=== PATIENT | male | born 1965 | race Caucasian/White ===

== ENCOUNTER 2017-03-19 22:10 | Emergency (ER) | payer MEDICAID ==
[~2017-03-19] VITALS: Ht 177.8 cm; Wt 95.3 kg
[2017-03-19 22:30] VITALS: BP_SYST 164
[2017-03-19] MEDS: KETOROLAC TROMETHAMINE 30 MG VIAL IVP ONE (23:21)
[2017-03-19] MEDS: MORPHINE SULFATE 10 MG/ML VIAL IVP ONE (23:23)
[2017-03-19] MEDS: NACL 0.9% 1,000 ML IV ONE ×2 (23:24→23:25)
[2017-03-19 23:33] LABS: BILIRUBIN,URINE NEGATIVE (NEGATIVE); BLOOD, URINE 1+ (NEGATIVE); CLARITY/URINE CLEAR (CLEAR); COLOR,URINE YELLOW (YELLOW); GLUCOSE,URINE NEGATIVE (NEGATIVE); KETONES,URINE TRACE (NEGATIVE); LEUKOCYTE ESTERASE ,URINE NEGATIVE (NEGATIVE); NITRITE, URINE NEGATIVE (NEGATIVE); PH,URINE 5.5 (5.0-8.0); PROTEIN URINE 2+ (NEGATIVE); UROBILINOGEN,URINE 0.2 (0.2-1.0)
[2017-03-19 23:34] LABS: BASOPHILS % (AUTO) 0.4 % (0.0-2.0); EOSINOPHILS # (AUTO) 0.2 K/uL (0.0-0.4); EOSINOPHILS % (AUTO) 2.4 % (0.0-4.0); HEMATOCRIT 39.6 % (36-54); HEMOGLOBIN 13.8 g/dL (14.0-18.0); LYMPHOCYTES # (AUTO) 2.7 K/uL (1.0-5.5); LYMPHOCYTES % (AUTO) 40.7 % (20.5-51.5); MEAN CORPUSCULAR HEMOGLOBIN 29 pg (27-31); MEAN CORPUSCULAR HGB CONC 35 % (32-36); MEAN CORPUSCULAR VOLUME 85 fL (79.0-98.0); MONOCYTES # (AUTO) 0.9 K/uL (0.0-1.0); MONOCYTES % (AUTO) 13.1 % (1.7-9.3); NEUTROPHILS # (AUTO) 2.8 K/uL (1.8-7.7); NEUTROPHILS % (AUTO) 43.4 % (40.0-70.0); PLATELET COUNT (AUTO) 185 K/uL (130-430); RED BLOOD CELL COUNT(AUTO) 4.69 MIL/uL (4.2-6.2); WHITE BLOOD COUNT (AUTO) 6.6 K/uL (4.8-10.8)
[2017-03-19 23:36] LABS: CALCIUM 8.7 mg/dL (8.4-11.0); CREATININE 1.58 mg/dL (0.55-1.30)
[2017-03-19 23:38] LABS: TOTAL BILIRUBIN 1.1 mg/dL (0.0-1.0)
[2017-03-19 23:38] LABS: BACTERIA,URINE FEW /HPF (None Seen); HYALINE CASTS, URINE 0-3 /LPF (None Seen); WBC,URINE 0-3 /HPF (0-3)
[2017-03-19 23:39] LABS: ALBUMIN 3.4 g/dL (3.4-4.8)
[2017-03-19 23:39] LABS: MUCUS,URINE 1+ /LPF (None Seen)
[2017-03-19 23:40] LABS: PROTHROMBIN TIME 10.5 SECS (9.5-12.5)
[2017-03-20] MEDS: metroNIDAZOLE 500 mg/NS 100 ML IV ONE (00:17)
[2017-03-20] MEDS: LEVOFLOXACIN 500 MG/D5W 100 ML IV ONE (00:17)
[2017-03-20] MEDS: MORPHINE SULFATE 10 MG/ML VIAL IVP ONE (00:21)
[2017-03-20 01:23] VITALS: BP_SYST 138
== END 2017-03-20 01:23 | disposition home or self-care (01) ==
LOC: SED 22:10
DX: K65.4 Sclerosing mesenteritis (principal); E11.9 Type 2 diabetes mellitus without complications
CPT/HCPCS: 36415; 74176; 80053; 81000; 83690; 85025; 85610; 85730; 96361; 96365; 96367; 96375; 96376; 99285; J1885; J1956; J2270 ×2; J3490; J7030

== ENCOUNTER 2017-04-15 16:50 | Emergency (ER) | payer MEDICAID ==
[~2017-04-15] VITALS: Ht 177.8 cm; Wt 95.3 kg
[2017-04-15 16:50] VITALS: BP_SYST 197
[2017-04-15] MEDS ORDERED: NACL 0.9% 1,000 ML IV ONE (17:15)
[2017-04-15] MEDS ORDERED: KETOROLAC TROMETHAMINE 30 MG VIAL IVP ONE (17:15)
[2017-04-15] MEDS ORDERED: cloNIDine HCL 0.1 MG TABLET PO ONE ×2 (17:30→18:45)
[2017-04-15 17:33] LABS: BASOPHILS % (AUTO) 0.3 % (0.0-2.0); BILIRUBIN,URINE NEGATIVE (NEGATIVE); BLOOD, URINE 2+ (NEGATIVE); CLARITY/URINE CLEAR (CLEAR); COLOR,URINE YELLOW (YELLOW); EOSINOPHILS # (AUTO) 0.2 K/uL (0.0-0.4); EOSINOPHILS % (AUTO) 2.9 % (0.0-4.0); GLUCOSE,URINE 2+ (NEGATIVE); HEMATOCRIT 36.9 % (36-54); HEMOGLOBIN 12.3 g/dL (14.0-18.0); KETONES,URINE NEGATIVE (NEGATIVE); LEUKOCYTE ESTERASE ,URINE NEGATIVE (NEGATIVE); LYMPHOCYTES % (AUTO) 26.5 % (20.5-51.5); MEAN CORPUSCULAR HEMOGLOBIN 29 pg (27-31); MEAN CORPUSCULAR HGB CONC 33 % (32-36); MEAN CORPUSCULAR VOLUME 87 fL (79.0-98.0); MONOCYTES # (AUTO) 0.6 K/uL (0.0-1.0); MONOCYTES % (AUTO) 7.4 % (1.7-9.3); NEUTROPHILS # (AUTO) 4.9 K/uL (1.8-7.7); NEUTROPHILS % (AUTO) 62.9 % (40.0-70.0); NITRITE, URINE NEGATIVE (NEGATIVE); PH,URINE 5.5 (5.0-8.0); PLATELET COUNT (AUTO) 164 K/uL (130-430); PROTEIN URINE 3+ (NEGATIVE); RED BLOOD CELL COUNT(AUTO) 4.23 MIL/uL (4.2-6.2); RED CELL DISTRIBUTION WIDTH 13.4 % (9.0-15.0); UROBILINOGEN,URINE 0.2 (0.2-1.0); WHITE BLOOD COUNT (AUTO) 7.7 K/uL (4.8-10.8)
[2017-04-15] MEDS ORDERED: PROMETHAZINE HCL 25 MG/ML AMP IVP ONE (17:45)
[2017-04-15 17:47] LABS: CALCIUM 8.7 mg/dL (8.4-11.0); CREATININE 0.94 mg/dL (0.55-1.30); POTASSIUM 3.7 mmol/L (3.5-5.1)
[2017-04-15 17:53] LABS: ALBUMIN 3.2 g/dL (3.4-4.8); TOTAL BILIRUBIN 0.8 mg/dL (0.0-1.0); TOTAL PROTEIN, SERUM 6.9 g/dL (6.4-8.3)
[2017-04-15 18:07] LABS: BACTERIA,URINE FEW /HPF (None Seen); FINE GRANULAR CASTS,URINE 0-10 /LPF (None Seen); HYALINE CASTS, URINE 0-10 /LPF (None Seen); MUCUS,URINE None Seen /LPF (None Seen); WBC,URINE 0-3 /HPF (0-3)
[2017-04-15 19:42] VITALS: BP_SYST 152
== END 2017-04-15 19:42 | disposition home or self-care (01) ==
LOC: SED 16:50
DX: R10.31 Right lower quadrant pain (principal); I16.0 Hypertensive urgency; E11.9 Type 2 diabetes mellitus without complications; I10 Essential (primary) hypertension
CPT/HCPCS: 36415; 74176; 80053; 81000; 85025; 96361; 96374; 96375; 99285; J1885; J2550; J7030

== ENCOUNTER 2019-03-11 20:48 | Emergency (ER) | payer MEDICAID ==
[~2019-03-11] VITALS: Ht 177.8 cm; Wt 97.5 kg
[2019-03-11 20:50] VITALS: BP_SYST 170
[2019-03-11] MEDS ORDERED: ASA81 PO (22:02)
[2019-03-11] MEDS ORDERED: ASEN2.5T SL (22:02)
[2019-03-11] MEDS ORDERED: INDO25CA18 PO (22:02)
[2019-03-11] MEDS ORDERED: DIVA-74 PO (22:02)
[2019-03-11] MEDS ORDERED: LISI-600 PO (22:02)
[2019-03-11] MEDS ORDERED: GABA800T PO (22:02)
[2019-03-11] MEDS ORDERED: CAT.1 PO (22:02)
[2019-03-11] MEDS ORDERED: INSU100V7 IJ (22:03)
[2019-03-11] MEDS ORDERED: INSU100V9 SQ (22:03)
[2019-03-11 23:08] LABS: BASOPHILS # (AUTO) 0.1 K/uL (0.0-0.2); BASOPHILS % (AUTO) 0.7 % (0.0-2.0); EOSINOPHILS # (AUTO) 0.3 K/uL (0.0-0.4); HEMATOCRIT 39.7 % (36-54); LYMPHOCYTES # (AUTO) 2.6 K/uL (1.0-5.5); LYMPHOCYTES % (AUTO) 30.5 % (20.5-51.5); MEAN CORPUSCULAR HEMOGLOBIN 32 pg (27-31); MEAN CORPUSCULAR HGB CONC 35 % (32-36); MEAN CORPUSCULAR VOLUME 89 fL (79.0-98.0); MONOCYTES # (AUTO) 0.6 K/uL (0.0-1.0); NEUTROPHILS % (AUTO) 58.8 % (40.0-70.0); PLATELET COUNT (AUTO) 244 K/uL (130-430); RED BLOOD CELL COUNT(AUTO) 4.44 MIL/uL (4.2-6.2); RED CELL DISTRIBUTION WIDTH 13.2 % (9.0-15.0); WHITE BLOOD COUNT (AUTO) 8.6 K/uL (4.8-10.8)
[2019-03-11 23:15] LABS: CALCIUM 8.9 mg/dL (8.4-11.0); CREATININE 1.32 mg/dL (0.55-1.30); POTASSIUM 3.1 mmol/L (3.5-5.1)
[2019-03-11] MEDS ORDERED: hydrALAZINE HCL 20 MG/ML VIAL IVP ONE (23:15)
[2019-03-11] MEDS ORDERED: KETOROLAC TROMETHAMINE 30 MG VIAL IVP ONE (23:15)
[2019-03-11] MEDS ORDERED: KETOROLAC TROMETHAMINE 60 MG/2 ML VIAL IM ONE (23:15)
[2019-03-11 23:21] LABS: ALBUMIN 2.9 g/dL (3.4-4.8); TOTAL BILIRUBIN 0.9 mg/dL (0.0-1.0); URIC ACID 7.6 mg/dL (2.4-7.0)
[2019-03-11] MEDS ORDERED: KETOROLAC TROMETHAMINE 30 MG VIAL ONE (23:24)
[2019-03-12] MEDS ORDERED: MORPHINE 4 MG/ML INJ. SYRINGE IM ONE (00:15)
[2019-03-12 00:21] VITALS: BP_SYST 166
== END 2019-03-12 00:20 | disposition home or self-care (01) ==
LOC: SED 20:48
DX: M10.032 Idiopathic gout, left wrist (principal); E11.9 Type 2 diabetes mellitus without complications; I10 Essential (primary) hypertension; Z79.82 Long term (current) use of aspirin; Z79.899 Other long term (current) drug therapy; Z79.4 Long term (current) use of insulin
CPT/HCPCS: 36415; 73100; 73130; 80053; 82962; 84550; 85025; 96374; 96375; 99284; J0360; J1885; J2270; 93005